=== PATIENT | female | born 1985 | race Caucasian/White ===

== ENCOUNTER → 2017-02-20 07:50 | Outpatient (CLI) | payer BC ==
[2013-09-01 09:28] VITALS: BMI 46.4
[~2017-02-20 07:50] MED LIST: ADDERALL 20 MG20 M1; ADDERALL 20 MG20 M1 PO; ARMOUR THYROID30 MG; ASCORBIC ACID500 MG PO; COZAAR50 MG PO; CYCLOBENZAPRINE10 MG; DILAUDID2 MG PO; GINGER ROOT; LIVER SUPPORT; MILK THISTLE200 MG; PROTONIX40 MG; ROBAXIN500 MG; SUPER B COMPLE150 MG PO; TOPAMAX25 MG PO; TUMERIC; VIIBRYD40 MG PO; VITAMIN D31000 UNI2 PO; VITAMIN E400 UNI2; ZYRTEC10 MG PO
== END | disposition home or self-care (01) ==
LOC: D.MRI 07:50
DX: R51 Headache (principal)

== ENCOUNTER → 2017-03-26 13:59 | Outpatient (CLI) | payer BC ==
[2013-09-01 09:28] VITALS: BMI 46.4
== END | disposition home or self-care (01) ==
LOC: D.MRI 13:59
DX: R51 Headache (principal)

== ENCOUNTER → 2018-03-19 16:10 | Outpatient (CLI) | payer OTHER ==
[2013-09-01 09:28] VITALS: BMI 46.4
== END | disposition home or self-care (01) ==
LOC: D.CT 16:10
DX: R10.9 Unspecified abdominal pain (principal)

== ENCOUNTER 2019-01-18 08:04 | Day surgery (SDC) | payer OTHER ==
[~2019-01-18] VITALS: Ht 162.6 cm; Wt 125.2 kg
[~2019-01-18 08:04] MED LIST changes: +OMEPRAZOLE40 MG PO; +ZANTAC300 MG PO
[2019-01-18 08:25] LABS: HEMATOCRIT 37.9 % (36.0-48.0); HEMOGLOBIN 12.5 g/dL (12-16); MCH 27.5 pg (26.0-34.0); MCV 83.3 fL (80.0-100.0); MEAN PLATELET VOLUME 9.8 fL (7.4-10.4); RBC 4.55 10x6/uL (4.00-5.40); RDW 14.5 % (11.5-14.5); WBC 7.7 10x3/uL (4.8-10.8)
[2019-01-18] MEDS ORDERED: KLONOPIN1 MG PO (09:27)
[2019-01-18 09:35] VITALS: BP 146/86; Ht 162.6 cm; Wt 125.2 kg
[2019-01-18 09:53] LABS: HCG URINE NEGATIVE (NEGATIVE)
[2019-01-18] MEDS ORDERED: DILAUDID2 MG PO (13:22)
--- NOTE | 2019-01-18 15:26 | NUR ---
DC INSTRUCTIONS GIVEN TO PT/FAMILY. STATE UNDERSTANDING. DC'D IV CATH FULLY INTACT.
--- NOTE | 2019-01-18 15:37 | OP ---
PATIENT NAME: TITI HURST MEDICAL RECORD: [id number] :89 LOCATION:[facility] ADMISSION DATE: SURGEON: RAMÓN MARVIN MD DATE OF OPERATION: 01/18/2019 SURGEON: Ramón Marvin MD PREOPERATIVE DIAGNOSES: Dysphagia, GERD with grade B esophagitis, and moderate hiatal hernia left, history of laparoscopic adjustable gastric banding. POSTOPERATIVE DIAGNOSES: Dysphagia, GERD with grade B esophagitis, and moderate hiatal hernia left, history of laparoscopic adjustable gastric banding. PROCEDURE PERFORMED: Laparoscopic hiatal hernia repair and removal of laparoscopic gastric band. ANESTHESIA: General. COMPLICATIONS: None. SPECIMENS: Gastric band. Case was clean. OPERATIVE COURSE: After consent was obtained, the patient was taken to the operating room and placed in supine position on the operating table. Next, general anesthesia was given via endotracheal intubation. A timeout was performed to confirm the correct patient and procedure. The abdomen was prepped and draped in typical sterile fashion. Local anesthetic was injected just above the umbilicus. A stab incision was made with 11-blade scalpel. Using an 11-mm bladeless optical trocar, the abdomen was entered under direct laparoscopic vision. Adequate pneumoperitoneum was achieved. The patient was placed in the steep reverse Trendelenburg position and 11 mm and a 5-mm trocar were placed into the right lower quadrant under direct laparoscopic vision after the administration of local anesthetic. In the subxiphoid position, a Edgardo liver retractor was placed as well as a 5-mm trocar in the left lateral quadrant. The left lobe of the liver was elevated exposing the GE junction. There were dense adhesions along the underneath surface of the liver to the anterior stomach. Careful dissection was performed using a combination of sharp scissor dissection and electrocautery. The gastric band was herniated through the diaphragmatic hiatus. At this time, the gastrohepatic ligament was opened with the Harmonic scalpel dissection continued to the level of the right crura. The right crura was skeletonized using Harmonic scalpel as long as the posterior exposing the base of the left crura. Dissection then continued laterally and anteriorly getting into the mediastinal space. The short gastrics were taken along the upper third of the cardia using Harmonic scalpel. This was continued to the level of the left crura, which was further skeletonized to allow for circumferential dissection of the mediastinum. Mediastinal dissection then continued until the hernia sac was dissected out and we had approximately 5 cm of intra-abdominal esophagus. Due to the patient's dysphagia and esophagitis and difficulty in reducing the hernia, I opened the capsule on the gastric band. The capsule was opened using electrocautery. The locking mechanism was cut with scissors. The band was opened. The tubing was cut and the gastric band was removed. At this time, the diaphragmatic hernia was closed using 0 Stratafix polypropylene suture. At this time, the band was grabbed and removed OPERATIVE REPORT [id number] TITI HURST through the 11-mm trocar. The abdomen was copiously irrigated and suctioned. There was no evidence of bowel injury. No evidence of bleeding. The Edgardo liver retractor was then removed. The all remaining instruments were removed. The abdomen was desufflated. Remaining trocars were removed. Local anesthetic was again injected just above the subcutaneous port in the right upper quadrant. Skin incision was made with a #15 blade scalpel. Dissection continued to the level of the subcutaneous port. The port was dissected using electrocautery. It was removed and sent with the gastric band for permanent pathology. The wound was irrigated and suctioned. The subcutaneous tissue was closed with 3-0 Vicryl suture. All skin incisions were then closed with 4-0 Monocryl, Mastisol and Steri-Strips. At the end of the case, all needle and sponge counts were correct. No complications occurred. The patient was extubated and transferred to the PACU in stable condition. TRANSINT:[id number] Voice Confirmation ID: [id number] DOCUMENT ID: [id number] RAMÓN MARVIN MD at 1537 CC: [id number] DICTATION DATE: 01/18/19 1330 DENTAL CERAMIST HELPER: 01/18/19 1349 [facility] [address] [place] [address]
--- NOTE | 2019-01-18 15:42 | NUR ---
PT LEFT UNIT VIA WC AT 1541
== END 2019-01-18 15:41 | disposition home or self-care (01) ==
LOC: D.OPS 08:04
PROVIDERS: Anesthesiology; ATTEND Surgery
DX: K21.0 Gastro-esophageal reflux disease with esophagitis (principal); K44.9 Diaphragmatic hernia without obstruction or gangrene; Z98.84 Bariatric surgery status; Z01.812 Encounter for preprocedural laboratory examination

== ENCOUNTER → 2019-02-02 17:48 | Outpatient (CLI) | payer OTHER ==
[2019-01-18 09:35] VITALS: BMI 47.5
[~2019-02-02 17:48] MED LIST changes: +KLONOPIN1 MG PO
== END | disposition home or self-care (01) ==
LOC: D.RAD 17:48
PROVIDERS: ATTEND Surgery
DX: R09.02 Hypoxemia (principal)